=== PATIENT | male | born 1985 | race African-American/Black ===

== ENCOUNTER 2021-05-18 05:26 | Emergency (ER) | payer SELFPAY ==
[~2021-05-18] VITALS: Ht 172.7 cm; Wt 64.0 kg
[2021-05-18 05:28] VITALS: BP 130/82
== END 2021-05-18 05:52 | disposition left against medical advice (07) ==
LOC: ER 05:52
DX: Z53.21 Procedure and treatment not carried out due to patient leaving prior to being seen by health care provider (principal); I49.9 Cardiac arrhythmia, unspecified
CPT/HCPCS: 93005